=== PATIENT | female | born 1945 | race Caucasian/White ===

== ENCOUNTER 2019-04-29 17:21 | Inpatient (IN) ==
[2019-04-29] MEDS ORDERED: METOCLOPRAMIDE 10 MG/2 ML VIAL IV STA (18:04)
[2019-04-29] MEDS ORDERED: ONDANSETRON 4 MG/2 ML VIAL IV STA (18:04)
[2019-04-29] MEDS ORDERED: DICYCLOMINE 20 MG/2 ML AMP IM ONE (18:04)
[2019-04-29] MEDS ORDERED: SODIUM CHLORIDE 0.9% 1,000 ML IV STA (18:04)
[2019-04-29] MEDS ORDERED: PANTOPRAZOLE 40 MG VIAL IV STA (18:04)
[2019-04-29 18:18] LABS: Basophils # 0.1 10*3/uL (0.0-0.2); Basophils % 0.5 % (0.0-0.8); Eosinophils # 0.3 10*3/uL (0.0-0.87); Hematocrit 40.5 VOL% (35.7-47.0); Hemoglobin 13.2 GM/DL (12.0-16.0); Immature Granulocytes % 0.5 %; Immature Granulocytes Absolute 0.05 #; Lymphocytes # 2.5 10*3/uL (1.4-4.0); Lymphocytes % 25.2 % (21.3-54.2); Mean Corpuscular HGB Conc 32.6 GM/DL (32-36); Mean Corpuscular Volume 91.2 FL (87-102); Mean Platelet Volume 10.9 FL (9.6-12.0); Monocytes % 9.1 % (1.7-12.7); Neutrophils % 61.7 % (38.7-73.9); Platelet Count 233 T/CUMM (130-400); Red Blood Count 4.44 MC/CUMM (3.8-5.5); Red Cell Distribution Width 14.4 % (9.3-17.3); White Blood Count 9.8 T/CUMM (4-12)
[2019-04-29 18:47] LABS: Albumin 4.3 G/DL (3.4-5.0); Bilirubin,Total 1.1 MG/DL (0.2-1.0); Calcium 9.7 MG/DL (8.5-10.1); Osmolality,Calculated 277.7 MOS/KG (273-304); Total Protein 8.1 G/DL (6.4-8.3)
[2019-04-29 18:49] LABS: Amylase 57 U/L (25-115); Troponin I < 0.015 NG/ML (0.00-0.045)
[2019-04-29 19:06] LABS: Apearance,Urine Slightly Hazy (Clear); Bacteria,Urine Occasional /HPF (Few); Bilirubin,Urine Small mg/dL (Negative); Blood, Urine Negative (Negative); Glucose,Urine (UA) Negative (Negative); Granular Casts,Urine 25 /LPF (0-1); Hyaline Casts,Urine 169 /LPF (0-3); Ketones,Urine 5 mg/dL (Negative); Mucus,Urine Many /LPF (Occasional); Nitrite,Urine Negative (Negative); Protein,Urine 100 MG/DL; Squamous Epithelial Cell,Urine Occasional /HPF (0-10); Urine Color Amber (Yellow); Urine Specific Gravity 1.026 (1.001-1.035)
[2019-04-29] MEDS ORDERED: hydrALAZINE 20 MG/1 ML VIAL IV PRN (19:36)
[2019-04-29] MEDS ORDERED: GLUCAGON 1 MG VIAL IM PRN (19:36)
[2019-04-29] MEDS ORDERED: DEXTROSE 50% 25 GM/50 ML VIAL IV PRN (19:36)
[2019-04-29] MEDS: SODIUM CHLORIDE 0.9% 1,000 ML IV SCH (20:43)
[2019-04-29] MEDS: PIPERACILLIN/TAZOBACTAM 3,375 MG in SODIUM CHLORIDE 0.9% 100 ML IV SCH (20:43)
[2019-04-29] MEDS ORDERED: INSULIN REGULAR 100 UNIT/ML ONE (22:10)
[2019-04-29] MEDS: OLOPATADINE 0.1% OPH SOLN 5 ML BOTTLE BOTH EYES SCH (22:14)
[2019-04-29] MEDS: INSULIN REGULAR 100 UNIT/ML SUBCUT SCH (23:20)
[2019-04-29] MEDS: METOCLOPRAMIDE 10 MG/2 ML VIAL IV SCH (23:42)
[2019-04-30] MEDS: PIPERACILLIN/TAZOBACTAM 3,375 MG in SODIUM CHLORIDE 0.9% 100 ML IV SCH ×3 (04:25→20:40)
[2019-04-30] MEDS: SODIUM CHLORIDE 0.9% 1,000 ML IV SCH ×3 (04:25→20:40)
[2019-04-30] MEDS: METOCLOPRAMIDE 10 MG/2 ML VIAL IV SCH ×3 (05:53→17:36)
[2019-04-30] MEDS: INSULIN REGULAR 100 UNIT/ML SUBCUT SCH ×3 (06:59→18:21)
[2019-04-30] MEDS: OLOPATADINE 0.1% OPH SOLN 5 ML BOTTLE BOTH EYES SCH ×2 (09:12→20:44)
[2019-04-30] MEDS: PANTOPRAZOLE 40 MG VIAL IV SCH (09:20)
[2019-05-01] MEDS: INSULIN REGULAR 100 UNIT/ML SUBCUT SCH ×4 (00:35→17:59)
[2019-05-01] MEDS: METOCLOPRAMIDE 10 MG/2 ML VIAL IV SCH ×4 (00:40→19:32)
[2019-05-01] MEDS: PIPERACILLIN/TAZOBACTAM 3,375 MG in SODIUM CHLORIDE 0.9% 100 ML IV SCH ×3 (04:49→21:12)
[2019-05-01 05:05] LABS: Bilirubin,Total 0.7 MG/DL (0.2-1.0); Calcium 8.5 MG/DL (8.5-10.1); Osmolality,Calculated 286.8 MOS/KG (273-304); Total Protein 6.4 G/DL (6.4-8.3)
[2019-05-01] MEDS: SODIUM CHLORIDE 0.9% 1,000 ML IV SCH ×4 (07:20→20:30)
[2019-05-01] MEDS: OLOPATADINE 0.1% OPH SOLN 5 ML BOTTLE BOTH EYES SCH ×2 (10:04→21:14)
[2019-05-01] MEDS: PANTOPRAZOLE 40 MG VIAL IV SCH (10:04)
[2019-05-01 10:08] LABS: PT Patient Result 10.4 SECS; Partial Thromboplastin Time 25.4 SECS (0-40)
[2019-05-01 12:32] LABS: Hepatitis B Core IgM Quant 0.31 Index; Hepatitis B Surface Ag Quant < 0.10 Index; Hepatitis B Surface Ag Result Negative (Negative); Hepatitis C Virus Ab Quant < 0.02 Index; Hepatitis C Virus Ab Result Negative (Negative)
[2019-05-02] MEDS: INSULIN REGULAR 100 UNIT/ML SUBCUT SCH ×4 (00:59→18:18)
[2019-05-02] MEDS: METOCLOPRAMIDE 10 MG/2 ML VIAL IV SCH ×4 (01:15→17:35)
[2019-05-02] MEDS: SODIUM CHLORIDE 0.9% 1,000 ML IV SCH ×4 (04:12→20:40)
[2019-05-02] MEDS: PIPERACILLIN/TAZOBACTAM 3,375 MG in SODIUM CHLORIDE 0.9% 100 ML IV SCH ×3 (05:10→20:14)
[2019-05-02] MEDS: PANTOPRAZOLE 40 MG VIAL IV SCH (09:18)
[2019-05-02] MEDS: OLOPATADINE 0.1% OPH SOLN 5 ML BOTTLE BOTH EYES SCH ×2 (10:45→20:14)
[2019-05-03] MEDS: INSULIN REGULAR 100 UNIT/ML SUBCUT SCH ×4 (00:20→17:51)
[2019-05-03] MEDS: METOCLOPRAMIDE 10 MG/2 ML VIAL IV SCH ×4 (00:55→17:52)
[2019-05-03] MEDS: SODIUM CHLORIDE 0.9% 1,000 ML IV SCH ×3 (03:05→22:46)
[2019-05-03] MEDS: PIPERACILLIN/TAZOBACTAM 3,375 MG in SODIUM CHLORIDE 0.9% 100 ML IV SCH ×3 (05:06→22:46)
[2019-05-03] MEDS ORDERED: LACTATED RINGERS 1,000 ML IV SCH (08:00)
[2019-05-03] MEDS: ONDANSETRON 4 MG/2 ML VIAL IV PRN (08:11)
[2019-05-03] MEDS ORDERED: LIDOCAINE 100 MG/5 ML SYRINGE ONE (08:30)
[2019-05-03] MEDS ORDERED: PROPOFOL 200 MG/20 ML VIAL IV ONE (08:30)
[2019-05-03] MEDS: LOSARTAN 50 MG TABLET PO SCH (09:28)
[2019-05-03] MEDS: PANTOPRAZOLE 40 MG VIAL IV SCH (09:28)
[2019-05-03] MEDS: OLOPATADINE 0.1% OPH SOLN 5 ML BOTTLE BOTH EYES SCH ×2 (09:35→22:48)
[2019-05-03] MEDS: ASPIRIN EC 81 MG TABLET PO SCH (09:35)
[2019-05-04] MEDS: INSULIN REGULAR 100 UNIT/ML SUBCUT SCH ×4 (02:28→18:21)
[2019-05-04] MEDS: METOCLOPRAMIDE 10 MG/2 ML VIAL IV SCH ×5 (02:29→23:33)
[2019-05-04 06:06] LABS: Albumin 3.4 G/DL (3.4-5.0); Bilirubin,Total 0.6 MG/DL (0.2-1.0); Calcium 8.8 MG/DL (8.5-10.1); Osmolality,Calculated 284.1 MOS/KG (273-304)
[2019-05-04] MEDS: PIPERACILLIN/TAZOBACTAM 3,375 MG in SODIUM CHLORIDE 0.9% 100 ML IV SCH ×3 (06:45→19:30)
[2019-05-04] MEDS: SODIUM CHLORIDE 0.9% 1,000 ML IV SCH ×3 (06:57→20:43)
[2019-05-04] MEDS: LOSARTAN 50 MG TABLET PO SCH (09:07)
[2019-05-04] MEDS: ASPIRIN EC 81 MG TABLET PO SCH (09:07)
[2019-05-04] MEDS: PANTOPRAZOLE 40 MG VIAL IV SCH (09:08)
[2019-05-04] MEDS ORDERED: LIDOCAINE 1% 20 ML VIAL ONE (09:51)
[2019-05-04] MEDS ORDERED: BUPIVACAINE MPF 0.25% /EPI 30 ML VIAL ONE (09:51)
[2019-05-04] MEDS ORDERED: TISSUE ADHESIVE 1 EACH APPLICATOR TOP ONE (11:04)
[2019-05-04] MEDS ORDERED: HYDROmorphone 2 MG/1 ML VIAL ONE (11:10)
[2019-05-04] MEDS ORDERED: fentaNYL 100 MCG/2 ML VIAL ONE (11:36)
[2019-05-04] MEDS ORDERED: ePHEDrine 50 MG/ML AMP ONE (11:36)
[2019-05-04] MEDS ORDERED: PROPOFOL 200 MG/20 ML VIAL IV ONE (11:36)
[2019-05-04] MEDS ORDERED: SEVOFLURANE 1 UNIT/15 MINUTE INH ONE (11:36)
[2019-05-04] MEDS ORDERED: GLYCOPYRROLATE 0.4 MG/2 ML VIAL ONE (11:36)
[2019-05-04] MEDS ORDERED: ONDANSETRON 4 MG/2 ML VIAL ONE (11:36)
[2019-05-04] MEDS ORDERED: NEOSTIGMINE 10 MG/10 ML VIAL ONE (11:37)
[2019-05-04] MEDS ORDERED: PHENYLEPHRINE 1 MG/10 ML SYRINGE IV ONE (11:37)
[2019-05-04] MEDS ORDERED: LACTATED RINGERS 1,000 ML IV ONE (11:37)
[2019-05-04] MEDS ORDERED: ROCURONIUM 100 MG/10 ML VIAL IV ONE (11:37)
[2019-05-04] MEDS: ONDANSETRON 4 MG/2 ML VIAL IV PRN ×2 (14:49→23:20)
[2019-05-04] MEDS: OLOPATADINE 0.1% OPH SOLN 5 ML BOTTLE BOTH EYES SCH ×2 (14:59→20:38)
[2019-05-04] MEDS: fentaNYL 100 MCG/2 ML VIAL IV PRN ×2 (19:22→23:36)
[2019-05-05] MEDS: INSULIN REGULAR 100 UNIT/ML SUBCUT SCH ×2 (02:15→07:32)
[2019-05-05] MEDS: PIPERACILLIN/TAZOBACTAM 3,375 MG in SODIUM CHLORIDE 0.9% 100 ML IV SCH ×2 (02:25→09:27)
[2019-05-05] MEDS: SODIUM CHLORIDE 0.9% 1,000 ML IV SCH (04:45)
[2019-05-05] MEDS: ONDANSETRON 4 MG/2 ML VIAL IV PRN (06:37)
[2019-05-05] MEDS: METOCLOPRAMIDE 10 MG/2 ML VIAL IV SCH (06:42)
[2019-05-05] MEDS: fentaNYL 100 MCG/2 ML VIAL IV PRN (06:45)
[2019-05-05] MEDS: LOSARTAN 50 MG TABLET PO SCH (09:19)
[2019-05-05] MEDS: ASPIRIN EC 81 MG TABLET PO SCH (09:19)
[2019-05-05] MEDS: PANTOPRAZOLE 40 MG VIAL IV SCH (09:21)
[2019-05-05] MEDS: OLOPATADINE 0.1% OPH SOLN 5 ML BOTTLE BOTH EYES SCH (09:24)
[2019-05-05 11:27] VITALS: BP 139/73
== END 2019-05-05 15:00 | disposition home or self-care (01) | DRG 419 ==
LOC: N.ED 17:21 → N.EDINP 19:35 → N.3E 19:49
PROVIDERS: ADMIT Surgery; ATTEND Surgery
PROC: LAPCHOL (2019-05-04 09:56)

== ENCOUNTER 2021-08-02 07:25 | Observation (INO) ==
[2021-08-02 08:02] LABS: Basophils % 0.3 % (0.0-0.8); Eosinophils # 0.2 10*3/uL (0.0-0.87); Hematocrit 37.3 VOL% (35.7-47.0); Hemoglobin 12.2 GM/DL (12.0-16.0); Immature Granulocytes % 0.5 %; Immature Granulocytes Absolute 0.04 #; Lymphocytes # 1.2 10*3/uL (1.4-4.0); Lymphocytes % 14.9 % (21.3-54.2); Mean Corpuscular HGB Conc 32.7 GM/DL (32-36); Mean Platelet Volume 10.6 FL (9.6-12.0); Monocytes % 8.7 % (1.7-12.7); Neutrophils % 73.6 % (38.7-73.9); Platelet Count 207 T/CUMM (130-400); Red Blood Count 4.01 MC/CUMM (3.8-5.5); White Blood Count 7.9 T/CUMM (4-12)
[2021-08-02 08:48] LABS: Albumin 3.5 G/DL (3.4-5.0); Bilirubin,Total 1.2 MG/DL (0.20-1.00); Calcium 8.4 MG/DL (8.5-10.1); Osmolality,Calculated 278.7 MOS/KG (273-304); Total Protein 7.4 G/DL (6.4-8.2)
[2021-08-02] MEDS ORDERED: SODIUM CHLORIDE 0.9% 1,000 ML IV STA ×2 (09:26→11:13)
[2021-08-02 12:29] LABS: PT Patient Result 11.2 SECS (10.5-12.0)
[2021-08-02] MEDS ORDERED: GLUCAGON 1 MG VIAL IM PRN (12:58)
[2021-08-02] MEDS ORDERED: guaiFENesin/DM ER 600-30 MG TABLET PO PRN (12:58)
[2021-08-02] MEDS ORDERED: DEXTROSE 50% 25 GM/50 ML VIAL IV PRN (12:58)
[2021-08-02] MEDS ORDERED: ACETAMINOPHEN 325 MG TABLET PO PRN (12:58)
[2021-08-02] MEDS ORDERED: hydrALAZINE 20 MG/1 ML VIAL IV PRN (12:58)
[2021-08-02] MEDS ORDERED: ONDANSETRON 4 MG/2 ML VIAL IV PRN (12:58)
[2021-08-02] MEDS: SODIUM CHLORIDE 0.45% 1,000 ML IV SCH (13:14)
[2021-08-02] MEDS: INSULIN REGULAR 100 UNIT/ML SUBCUT SCH ×2 (16:42→20:44)
[2021-08-02] MEDS: ENOXAPARIN 40 MG/0.4 ML SYRINGE SUBCUT SCH (20:39)
[2021-08-02] MEDS: CYCLOBENZAPRINE 10 MG TABLET PO PRN (22:01)
[2021-08-02] MEDS: amLODIPine 5 MG TABLET PO SCH (22:01)
[2021-08-02] MEDS: LEVOTHYROXINE 75 MCG TABLET PO SCH (22:01)
[2021-08-02] MEDS: LOSARTAN 50 MG TABLET PO SCH (22:01)
[2021-08-03] MEDS: SODIUM CHLORIDE 0.45% 1,000 ML IV SCH ×3 (00:49→21:00)
[2021-08-03 06:13] LABS: Basophils % 0.2 % (0.0-0.8); Eosinophils # 0.2 10*3/uL (0.0-0.87); Eosinophils % 4.3 % (0.00-10.9); Hematocrit 34.5 VOL% (35.7-47.0); Hemoglobin 11.2 GM/DL (12.0-16.0); Immature Granulocytes % 0.2 %; Immature Granulocytes Absolute 0.01 #; Lymphocytes # 2.2 10*3/uL (1.4-4.0); Lymphocytes % 39.5 % (21.3-54.2); Mean Corpuscular HGB Conc 32.5 GM/DL (32-36); Mean Corpuscular Volume 95.3 FL (87-102); Mean Platelet Volume 10.6 FL (9.6-12.0); Monocytes % 11.5 % (1.7-12.7); Neutrophils % 44.3 % (38.7-73.9); Platelet Count 173 T/CUMM (130-400); Red Blood Count 3.62 MC/CUMM (3.8-5.5); Red Cell Distribution Width 13.2 % (9.3-17.3); White Blood Count 5.6 T/CUMM (4-12)
[2021-08-03] MEDS: INSULIN REGULAR 100 UNIT/ML SUBCUT SCH ×4 (08:10→21:41)
[2021-08-03] MEDS: PANTOPRAZOLE 40 MG TABLET PO SCH (09:15)
[2021-08-03] MEDS: amLODIPine 5 MG TABLET PO SCH (09:15)
[2021-08-03] MEDS: LOSARTAN 50 MG TABLET PO SCH (09:15)
[2021-08-03] MEDS: AMOXICILLIN 500 MG CAPSULE PO SCH ×2 (09:15→21:06)
[2021-08-03] MEDS: LEVOTHYROXINE 75 MCG TABLET PO SCH (09:15)
[2021-08-03] MEDS: CETIRIZINE 10 MG TABLET PO SCH (10:33)
[2021-08-03] MEDS: VENLAFAXINE XR 75 MG CAPSULE PO SCH (10:33)
[2021-08-03] MEDS: ASPIRIN EC 81 MG TABLET PO SCH (10:33)
[2021-08-03] MEDS: FERROUS SULFATE 325 MG TABLET PO SCH (10:33)
[2021-08-03] MEDS: ROSUVASTATIN 20 MG TABLET PO SCH (10:33)
[2021-08-03 12:42] LABS: Albumin 2.9 G/DL (3.4-5.0); Bilirubin,Total 0.7 MG/DL (0.20-1.00); Calcium 7.7 MG/DL (8.5-10.1); Osmolality,Calculated 277.4 MOS/KG (273-304); Potassium 3.5 MMOL/L (3.5-5.1); Risk Ratio 3.42; Thyroid Stimulating Hormone 0.669 uIU/ml (0.358-3.74); Total Protein 6.3 G/DL (6.4-8.2)
[2021-08-03] MEDS ORDERED: PHENOL 1.4% THROAT SPRAY 177 ML BOTTLE PO PRN (13:48)
[2021-08-03] MEDS: FLUTICASONE 50 MCG NASAL SPRAY 16 GM BOTTLE BOTH NARES SCH (14:58)
[2021-08-03] MEDS: ENOXAPARIN 40 MG/0.4 ML SYRINGE SUBCUT SCH (21:06)
[2021-08-04] MEDS: LEVOTHYROXINE 75 MCG TABLET PO SCH (05:48)
[2021-08-04] MEDS: CYCLOBENZAPRINE 10 MG TABLET PO PRN (05:49)
[2021-08-04] MEDS: SODIUM CHLORIDE 0.45% 1,000 ML IV SCH (05:50)
[2021-08-04 06:42] LABS: Basophils % 0.4 % (0.0-0.8); Eosinophils # 0.2 10*3/uL (0.0-0.87); Eosinophils % 4.1 % (0.00-10.9); Hematocrit 34.1 VOL% (35.7-47.0); Immature Granulocytes % 0.4 %; Immature Granulocytes Absolute 0.02 #; Lymphocytes # 2.4 10*3/uL (1.4-4.0); Lymphocytes % 43.5 % (21.3-54.2); Mean Corpuscular HGB Conc 32.3 GM/DL (32-36); Mean Corpuscular Volume 93.9 FL (87-102); Mean Platelet Volume 11.7 FL (9.6-12.0); Monocytes % 9.7 % (1.7-12.7); Neutrophils % 41.9 % (38.7-73.9); Red Blood Count 3.63 MC/CUMM (3.8-5.5); Red Cell Distribution Width 12.8 % (9.3-17.3); White Blood Count 5.6 T/CUMM (4-12)
[2021-08-04 06:54] LABS: Platelet Count 121 T/CUMM (130-400)
[2021-08-04 06:59] LABS: Albumin 3.1 G/DL (3.4-5.0); Bilirubin,Total 0.8 MG/DL (0.20-1.00); Calcium 8.4 MG/DL (8.5-10.1); Osmolality,Calculated 277.5 MOS/KG (273-304); Potassium 3.5 MMOL/L (3.5-5.1); Total Protein 6.8 G/DL (6.4-8.2)
[2021-08-04] MEDS: INSULIN REGULAR 100 UNIT/ML SUBCUT SCH ×2 (07:51→11:41)
[2021-08-04] MEDS ORDERED: LOPERAMIDE 2 MG CAPSULE PO PRN (09:05)
[2021-08-04] MEDS: FLUTICASONE 50 MCG NASAL SPRAY 16 GM BOTTLE BOTH NARES SCH (09:06)
[2021-08-04] MEDS: VENLAFAXINE XR 75 MG CAPSULE PO SCH (09:06)
[2021-08-04] MEDS: amLODIPine 5 MG TABLET PO SCH (09:06)
[2021-08-04] MEDS: AMOXICILLIN 500 MG CAPSULE PO SCH (09:06)
[2021-08-04] MEDS: ASPIRIN EC 81 MG TABLET PO SCH (09:06)
[2021-08-04] MEDS: PANTOPRAZOLE 40 MG TABLET PO SCH (09:06)
[2021-08-04] MEDS: CETIRIZINE 10 MG TABLET PO SCH (09:06)
[2021-08-04] MEDS: LOSARTAN 50 MG TABLET PO SCH (09:07)
[2021-08-04] MEDS: ROSUVASTATIN 20 MG TABLET PO SCH (09:07)
[2021-08-04] MEDS: FERROUS SULFATE 325 MG TABLET PO SCH (09:07)
[2021-08-04 10:12] LABS: % Iron Saturation 19.5 % (18-50)
[2021-08-04 10:26] LABS: Folate 13.48 NG/ML (5.38-24.0)
[2021-08-04 11:25] VITALS: BP 137/53
[2021-08-09] MEDS ORDERED: ERGOCALCIFEROL 50,000 UNIT CAPSULE PO SCH (09:23)
== END 2021-08-04 13:31 | disposition home or self-care (01) ==
LOC: EDUNIT# → N.ED 07:25 → N.EDINP 07:25 → N.5E 14:44
PROVIDERS: ADMIT Internal Medicine; ATTEND Internal Medicine